=== PATIENT | female | born 1975 | race Caucasian/White ===

== ENCOUNTER 2019-01-08 01:52 | Inpatient (IN) | payer OTHER ==
[~2019-01-08] VITALS: Ht 160 cm; Wt 64.0 kg
[~2019-01-08 01:52] MED LIST: LEVO50TA5 PO; NORE5TAB PO
--- NOTE | 2019-01-08 02:06 | NUR ---
1ST UNIT PRBC'S STARED, PT TOLERATING WELL.
--- NOTE | 2019-01-08 02:09 | NUR ---
Bedside us reveal blood in abd, blood bank called for two units uncrossmatched blood.
[2019-01-08 02:23] LABS: BASOPHILS # (AUTO) 0.04 x10^3/uL (0-0.1); BASOPHILS % (AUTO) 0 % (0-1); EOSINOPHILS # (AUTO) 0.04 x10^3/uL (0-0.4); EOSINOPHILS % (AUTO) 0 % (1-7); LYMPHOCYTES # (AUTO) 1.07 x10^3/uL (1-3.4); LYMPHOCYTES % (AUTO) 11 % (22-44); MD NO; MEAN CORPUSCULAR HEMOGLOBIN 22.7 pg (27.0-34.8); MEAN CORPUSCULAR HGB CONC 30.8 g/dL (32.4-35.8); MEAN CORPUSCULAR VOLUME 73.6 fL (80-100); MEAN PLATELET VOLUME 9.2 fL (7.4-10.4); MONOCYTES # (AUTO) 0.46 x10^3/uL (0.2-0.8); MONOCYTES % (AUTO) 5 % (2-9); NEUTROPHILS # (AUTO) 8.07 x10^3/uL (1.8-6.8); NEUTROPHILS % (AUTO) 83 % (42-75); PLATELET COUNT 289 x10^3/uL (130-400); RED BLOOD COUNT 3.28 x10^6/uL (3.82-5.3); RED CELL DISTRIBUTION WIDTH 16.4 % (9.6-15.2)
[2019-01-08] MEDS ORDERED: SODIUM CHLORIDE 0.9% 1,000ML IVBOLUS ONE (02:30)
[2019-01-08 02:31] LABS: INTERNATIONAL NORMALIZED RATIO 0.97 (0.93-1.1); PROTHROMBIN TIME 10.2 Seconds (9.6-11.5)
[2019-01-08 02:33] LABS: ALANINE AMINOTRANSFERASE 18 U/L (12-78); ALBUMIN 3.1 g/dL (3.4-5.0); ANION GAP 8 mmol/L (5-15); CALCIUM 7.8 mg/dL (8.5-10.1); CHLORIDE 111 mmol/L (98-107); CREATININE 1.37 mg/dL (0.55-1.02)
--- NOTE | 2019-01-08 02:34 | NUR ---
2ND UNIT OF PRBC'S STARTED. PT VSS AND PT IS TOLERATING TRANSFUSION WELL. PT AWARE SHE IS TO GO TO OR.
--- NOTE | 2019-01-08 02:49 | NUR ---
FIRST UNIT OF PRBC'S FINISHED. PT FAMILY AT BEDSIDE.
[2019-01-08 02:50] LABS: ALKALINE PHOSPHATASE 54 U/L (45-117); BILIRUBIN,TOTAL 0.3 mg/dL (0.2-1.0)
--- NOTE | 2019-01-08 02:56 | NUR ---
STAT RAD CALLS DR SMITH. AWAIT [employer] AT THIS TIME.
--- NOTE | 2019-01-08 02:58 | NUR ---
2ND UNIT PRBC'S COMPLETED. PT TOLERATING WELL. GRANT SMITH AT BEDSIDE.
[2019-01-08 02:59] LABS: CULTURE INDICATED? YES; MICROSCOPIC INDICATED
--- NOTE | 2019-01-08 03:00 | NUR ---
OB AT BEDSIDE FOR EVAL. PT TO GO TO SURGERY.
--- NOTE | 2019-01-08 03:00 | NUR ---
DR LAMAS HERE, OR CALLED PER HER REQUEST TO PREPARE FOR EXPLORATORY LAP.
--- NOTE | 2019-01-08 03:08 | NUR ---
REPORT TO OR. WILL BE COMING TO GET PT SHORTLY.
[2019-01-08] MEDS ORDERED: BUPIVACAINE/EPI 0.5% 1:200K ONE (03:24)
--- NOTE | 2019-01-08 03:26 | NUR ---
TO OR AT THIS TIME.
[2019-01-08] MEDS ORDERED: FENTANYL PF 250 MCG/5ML ONE (03:33)
[2019-01-08] MEDS ORDERED: MIDAZOLAM 1 MG/ML, 2ML ONE (03:33)
[2019-01-08] MEDS ORDERED: EPINEPHRINE 1 MG/ML, 1ML ONE (03:41)
[2019-01-08] MEDS ORDERED: BUPIVACAINE/PF 0.25% ONE (03:41)
[2019-01-08] MEDS ORDERED: BUPIVACAINE/PF-EPI 0.25% 1:200K IM ONE (03:47)
[2019-01-08] MEDS ORDERED: SUCCINYLCHOLINE 20 MG/ML, 10ML ONE (03:52)
[2019-01-08] MEDS ORDERED: ONDANSETRON 2MG/ML, 2ML ONE (03:52)
[2019-01-08] MEDS ORDERED: SUGAMMADEX 200 MG/2 ML IVPush ONE (03:52)
[2019-01-08] MEDS ORDERED: PROPOFOL 10 MG/ML, 20ML ONE (03:52)
[2019-01-08] MEDS ORDERED: CEFAZOLIN 1,000 MG ONE (03:52)
[2019-01-08] MEDS ORDERED: ROCURONIUM 10MG/ML,5ML ONE (03:52)
[2019-01-08] MEDS ORDERED: HYDROmorphone 2 MG/ML, 1ML IVPush PRN (05:30)
[2019-01-08] MEDS ORDERED: MEPERIDINE/PF 25MG/0.5ML IVPush PRN (05:30)
[2019-01-08] MEDS ORDERED: METOCLOPRAMIDE 5 MG/ML, 2ML IV PRN (05:30)
[2019-01-08] MEDS ORDERED: LORazepam 2 MG/ML, 1ML IVPush PRN (05:30)
[2019-01-08] MEDS ORDERED: ONDANSETRON 2MG/ML, 2ML IV PRN (05:30)
[2019-01-08] MEDS ORDERED: EPHEDRINE 50 MG/ML, 1ML IM PRN (05:30)
[2019-01-08] MEDS ORDERED: MEPERIDINE/PF 25MG/ML,1ML ONE (05:34)
[2019-01-08] MEDS ORDERED: OXYcodone 5 MG/5 ML ORAL.SOL UDC ONE (05:34)
[2019-01-08] MEDS ORDERED: FENTANYL PF 100 MCG/2ML ONE (05:47)
[2019-01-08] MEDS: FENTANYL PF 100 MCG/2ML IV PRN ×2 (05:49→05:56)
[2019-01-08] MEDS ORDERED: OXYcodone 5 MG/5 ML ORAL.SOL UDC PO PRN (06:00)
[2019-01-08 06:45] VITALS: BP 99/60
[2019-01-08 07:00] VITALS: BP 99/60
[2019-01-08] MEDS ORDERED: OXYcodone/APAP 5/325MG TABLET PO PRN (07:00)
[2019-01-08] MEDS: morphine SULFATE 10 MG/ML, 1ML IV PRN ×2 (07:48→08:52)
[2019-01-08] MEDS ORDERED: OXYC-306 PO (09:22)
[2019-01-08] MEDS ORDERED: IBUP-1222 PO (09:22)
[2019-01-08] MEDS ORDERED: IBUPROFEN 600 MG TABLET PO SCH (11:00)
[2019-01-08 13:30] VITALS: BP 101/59
== END 2019-01-08 15:40 | disposition home or self-care (01) | DRG 818 ==
LOC: ED 03:21 → MERGE 03:21 → EDIP 03:25 → 4NOR 06:24 → DCLOUNGE 15:30
PROVIDERS: ADMIT Obstetrics & Gynecology; ATTEND Obstetrics & Gynecology
PROC: 10T24ZZ Resection of Products of Conception, Ectopic, Percutaneous Endoscopic Approach (ICD-10-PCS; 2019-01-08)
PROC: 30233N1 Transfusion of Nonautologous Red Blood Cells into Peripheral Vein, Percutaneous Approach (ICD-10-PCS; 2019-01-08)
PROC: 0UB74ZZ Excision of Bilateral Fallopian Tubes, Percutaneous Endoscopic Approach (ICD-10-PCS; principal; 2019-01-08 03:15)
DX: O00.90 Unspecified ectopic pregnancy without intrauterine pregnancy (principal); D62 Acute posthemorrhagic anemia; Z98.84 Bariatric surgery status; I95.9 Hypotension, unspecified
CPT/HCPCS: 36415; 76830; 80053; 81001; 84703; 85025; 85610; 86850; 86900; 86923; 87086; 88305; 93005; J0171; J0690; J2175; J2250; J2405; J2704; J3010; J3490; J0330; J2270; J7030; P9016

== ENCOUNTER 2020-03-04 14:31 | Emergency (ER) | payer OTHER ==
[~2020-03-04] VITALS: Ht 160 cm; Wt 68.0 kg
[~2020-03-04 14:31] MED LIST changes: +IBUP-1222 PO; +OXYC-306 PO
[2020-03-04] MEDS ORDERED: MORPHINE SULFATE 4 MG/ML, 1ML ONE (15:15)
[2020-03-04] MEDS ORDERED: ONDANSETRON 2MG/ML, 2ML ONE (15:15)
[2020-03-04] MEDS ORDERED: MORPHINE SULFATE 4 MG/ML, 1ML IVPush PRN (15:30)
[2020-03-04] MEDS ORDERED: ONDANSETRON 2MG/ML, 2ML IVPush ONE (15:30)
[2020-03-04 15:33] LABS: BASOPHILS # (AUTO) 0.04 x10^3/uL (0-0.1); BASOPHILS % (AUTO) 1 % (0-1); EOSINOPHILS # (AUTO) 0.22 x10^3/uL (0-0.4); EOSINOPHILS % (AUTO) 3 % (1-7); LYMPHOCYTES # (AUTO) 1.82 x10^3/uL (1-3.4); LYMPHOCYTES % (AUTO) 28 % (22-44); MD NO; MEAN CORPUSCULAR HEMOGLOBIN 23.6 pg (27.0-34.8); MEAN CORPUSCULAR HGB CONC 31.1 g/dL (32.4-35.8); MEAN CORPUSCULAR VOLUME 75.8 fL (80-100); MEAN PLATELET VOLUME 8.6 fL (7.4-10.4); MONOCYTES # (AUTO) 0.42 x10^3/uL (0.2-0.8); MONOCYTES % (AUTO) 7 % (2-9); NEUTROPHILS # (AUTO) 4.05 x10^3/uL (1.8-6.8); NEUTROPHILS % (AUTO) 62 % (42-75); PLATELET COUNT 328 x10^3/uL (130-400); RED BLOOD COUNT 4.19 x10^6/uL (3.82-5.3); RED CELL DISTRIBUTION WIDTH 16.6 % (9.6-15.2)
[2020-03-04 15:44] LABS: ALANINE AMINOTRANSFERASE 17 U/L (12-78); ALBUMIN 3.6 g/dL (3.4-5.0); ANION GAP 7 mmol/L (5-15); CALCIUM 8.4 mg/dL (8.5-10.1); CHLORIDE 110 mmol/L (98-107); CREATININE 1.23 mg/dL (0.55-1.02)
[2020-03-04 15:46] LABS: ALKALINE PHOSPHATASE 63 U/L (45-117); BILIRUBIN,TOTAL 0.4 mg/dL (0.2-1.0); TOTAL PROTEIN 6.9 g/dL (6.4-8.2)
--- NOTE | 2020-03-04 16:08 | NUR ---
PT RESTING IN BED, ABLE TO DOZE OFF. SIGNIFICANT OTHER AT BEDSIDE. CALL LIGHT WITHIN REACH AND FALL PRECAUTIONS IN PLACE. PT STATES "PAIN IS A LOT BETTER AFTER PAIN MEDICATION". PT TRANSPORTED TO CT.
[2020-03-04] MEDS ORDERED: OMNIPAQUE 350 MG/ML, 150 ML BOTTLE ONE (16:22)
[2020-03-04 16:24] LABS: MICROSCOPIC NOT IND
--- NOTE | 2020-03-04 16:55 | NUR ---
PT LAYING IN BED COMFORTABLY, NAD. REPORTS DECREASED PAIN. ERP AT BEDSIDE DISCUSSING RESULTS AND FURTHER PLAN OF CARE. CALL LIGHT WITHIN REACH, NO NEEDS AT THIS TIME.
--- NOTE | 2020-03-04 16:57 | NUR ---
office was paged @[phone]
--- NOTE | 2020-03-04 17:20 | NUR ---
Pt.'s OB was called again @[phone]
[2020-03-04] MEDS ORDERED: HYDROcodone/APAP 5/325 TABLET PO ONE (17:30)
[2020-03-04] MEDS ORDERED: HYDROcodone/APAP 5/325 TABLET ONE (17:34)
--- NOTE | 2020-03-04 18:04 | NUR ---
PT RESTING IN BED WITH EYES CLOSED. SIGNIFICANT OTHER AT THE BEDSIDE. PT REPORTS A DECREASE IN PAIN. CALL LIGHT IN REACH. NO ADDITIONAL NEEDS AT THIS TIME.
--- NOTE | 2020-03-04 18:15 | NUR ---
PT AMBULATED TO BATHROOM, STATES SHE "FEELS MUCH BETTER".
[2020-03-04 18:41] VITALS: BP 140/77
--- NOTE | 2020-03-04 18:53 | NUR ---
Patient and significant other given discharge instructions and they have confirmed that they understand the instructions. Patient ambulatory with steady gait.
== END 2020-03-04 18:54 | disposition home or self-care (01) ==
LOC: ED 15:15
DX: N83.201 Unspecified ovarian cyst, right side (principal)
CPT/HCPCS: 36415; 74177; 80053; 81003; 84703; 85025; 96374; 96375; 99285; J2270; J2405; Q9967

== ENCOUNTER 2020-04-27 11:35 | Day surgery (SDC) | payer OTHER ==
[~2020-04-27] VITALS: Ht 160 cm; Wt 72.7 kg
[2020-04-27 12:14] VITALS: BP 122/83
[2020-04-27 12:25] LABS: HCG UR SG 1.021 (1.003-1.030)
[2020-04-27] MEDS ORDERED: LACTATED RINGERS 1,000 ML IV SCH (12:30)
[2020-04-27] MEDS ORDERED: CHLORHEXIDINE 15 ML UDC MM ONE (12:30)
[2020-04-27] MEDS ORDERED: MIDAZOLAM 1 MG/ML, 2ML ONE (13:17)
[2020-04-27] MEDS ORDERED: FENTANYL PF 100 MCG/2ML ONE ×3 (13:17→15:39)
[2020-04-27] MEDS ORDERED: SILVER NITRATE STICK TP ONE (13:48)
[2020-04-27] MEDS ORDERED: BUPIVACAINE/PF 0.25% ONE (13:48)
[2020-04-27] MEDS ORDERED: ACETAMINOPHEN 325 MG TABLET PO PRN (14:30)
[2020-04-27] MEDS ORDERED: METHOCARBAMOL 1,000 MG in DEXTROSE 5% 100 ML IV PRN (14:30)
[2020-04-27] MEDS ORDERED: ALBUTEROL SULFATE 2.5 MG/3 ML NPPB PRN (14:30)
[2020-04-27] MEDS ORDERED: MEPERIDINE/PF 25MG/0.5ML IVPush PRN (14:30)
[2020-04-27] MEDS ORDERED: LORazepam 2 MG/ML, 1ML IVPush PRN (14:30)
[2020-04-27] MEDS ORDERED: PROMETHAZINE 25 MG/ML, 1ML IVPush PRN (14:30)
[2020-04-27] MEDS ORDERED: hydrALAzine 20 MG/ML, 1ML IV PRN (14:30)
[2020-04-27] MEDS ORDERED: LABETALOL 5MG/ML, 20ML IV PRN (14:30)
[2020-04-27] MEDS ORDERED: OXYcodone 5 MG/5 ML ORAL.SOL UDC PO PRN (14:30)
[2020-04-27] MEDS ORDERED: HYDROmorphone 1 MG/ML, 1ML INJ IVPush PRN (14:30)
[2020-04-27] MEDS ORDERED: ONDANSETRON 2MG/ML, 2ML ONE (14:44)
[2020-04-27] MEDS ORDERED: GLYCOPYRROLATE 0.2MG/1ML, 5ML ONE (14:44)
[2020-04-27] MEDS ORDERED: CEFAZOLIN 1,000 MG ONE (14:44)
[2020-04-27] MEDS ORDERED: DEXAMETHASONE 4 MG/ML, 1ML ONE (14:44)
[2020-04-27] MEDS ORDERED: PROPOFOL 10 MG/ML, 20ML ONE (14:44)
[2020-04-27] MEDS ORDERED: ROCURONIUM 10MG/ML,5ML ONE (14:44)
[2020-04-27] MEDS ORDERED: NEOSTIGMINE 1 MG/ML, 10ML ONE (14:44)
[2020-04-27] MEDS ORDERED: LIDOCAINE-MPF 2% ,5ML ONE (14:45)
[2020-04-27] MEDS ORDERED: KETOROLAC 30 MG/1 ML ONE (14:45)
[2020-04-27] MEDS ORDERED: OXYcodone 5 MG/5 ML ORAL.SOL UDC ONE (15:39)
[2020-04-27] MEDS ORDERED: ACETAMINOPHEN 650 MG/20.3 ML UDC ONE (15:39)
[2020-04-27] MEDS: FENTANYL PF 100 MCG/2ML IV PRN ×2 (15:50→15:59)
== END 2020-04-27 18:30 | disposition home or self-care (01) ==
LOC: OUT 11:35
PROVIDERS: ATTEND Obstetrics & Gynecology
DX: R10.2 Pelvic and perineal pain (principal); N80.3 Endometriosis of pelvic peritoneum; N80.1 Endometriosis of ovary; N83.201 Unspecified ovarian cyst, right side; N73.6 Female pelvic peritoneal adhesions (postinfective); E03.9 Hypothyroidism, unspecified; Z79.1 Long term (current) use of non-steroidal anti-inflammatories (NSAID); Z79.890 Hormone replacement therapy; Z79.899 Other long term (current) drug therapy; Z87.891 Personal history of nicotine dependence; Z90.79 Acquired absence of other genital organ(s)
CPT/HCPCS: 58661; 58662; 81025; 88305; J0690; J1100; J1885; J2250; J2405; J2704; J2710; J3010; J7120; 36415; 87635